=== PATIENT | male | born 1960 | race Two or more races ===

== ENCOUNTER 2022-12-31 08:41 | Outpatient (REF) | payer OTHER, SELFPAY ==
[2023-01-01 04:34] LABS: HBS Num1 108.86 mIU/mL (0-7.99); HBc Num1 0.08 S/CO (0.00-0.79); HBsAGNum1 0.38 S/CO (0.00-0.99); HIV AB/AG Nonreactive (Nonreactive); HIV Num 1 0.31 S/CO (0.00-0.99); Hepatitis B Core Antibody Nonreactive (Nonreactive); Hepatitis B Surface Antigen Negative (Negative); ~Hepatitis B Surface Antibody REACTIVE (Nonreactive)
[2023-01-01 14:43] LABS: HCV Log PCR <1.18 NOT DETECTED Log IU/mL (NOT DETECTED); HepC Viral Load <15 NOT DETECTED IU/mL (NOT DETECTED)
[2023-01-02 09:35] LABS: RPR Rapid Plasma Reagin NON-REACTIVE (NON-REACTIVE)
== END 2022-12-31 08:42 | disposition home or self-care (01) ==
LOC: HO.CHCLDS 08:41
PROVIDERS: Visit Provider Registered Nurse
DX: Z00.00 Encounter for general adult medical examination without abnormal findings (principal); R73.03 Prediabetes; K70.0 Alcoholic fatty liver; E78.2 Mixed hyperlipidemia
CPT/HCPCS: 36415; 80053; 80061; 83036; 84443; 85025; 86592; 86704; 86706; 87340; 87389; 87522

== ENCOUNTER 2025-03-21 08:48 | Outpatient (REF) | payer SELFPAY ==
--- OUTSIDE RECORDS SUMMARY | 2025-03-21 10:43 | XMS_ITS | Encounter Summary ---
Author Organization [employer] Address [address] [facility] [address] [place] [address] Care Team Providers Care Insurance Underwriter Name Role Phone Ana María Chambers [place] Primary Care Provider [phone] Encounter Details Date Type Department Care Team (Late st Contact Info) Description 08/10/2024 Orders Only [facility] [address] [place], [place] [id number] Provider, MD Donte Social History Tobacco Use Types Packs/Day Years Used Date Smoking Tobacco: Every Day Cigarettes Passive Smoke Exposure: Current Smokeless Tobacco: Former Depression Answer Date Recorded Patient Health Questionnaire-9 Score 8 08/10/2023 Patient Health Questionnaire-9 Score 8 08/10/2023 Last PHQ-9: Questionnaire Data Not on file 0 08/10/2023 Housing Stability Answer Date Recorded What is your housing situation today? I have rishabh mccann 08/03/[address] you li ve. Do you have problems with any of the following? None of the above 08/03/2023 Food Insecurity Answer Date Recorded Within the past 12 months, y ou worried that your food would run out before you got money to buy more: Never True 01/06/2023 Within the past 12 months,th e food you bought just didn't last and you didn't have enough money to get more: Never True Transportation Answer Date Recorded In the past 12 months, has l ack of transportation kept you from medical appts, meetings, work or from getting things needed for daily living? No 01/06/2023 Utilities Answer Date Recorded In the past 12 months, has t he electric, gas, oil or water company threatened to shut off services in your home? No 01/06/2023 Depression Answer Date Recorded Patient Health Questionnaire-2 Score 2 08/10/2023 Sex and Gender Information Value Date Recorded Sex Assigned at Male 05/05/2022 4:26 PM EST Legal Sex Male 4:25 PM EST Gender Identity Male 05/05/2022 4:26 PM EST Sexual Orientation Straight 12/26/2022 2: 53 PM EDT documented as of this encounter Plan of Treatment Upcoming Encounters Date Type Department Care Team (Late st Contact Info) Description 04/03/2025 9:00 AM EST Office Visit [facility] [address] [place] [address] Ana María Chambers FNP [address] [place] [address] documented as of this encounter Procedures Procedure Name Priority Date/Time Associated Diagnosis Comments HM LUNG CANCER SCREENING Routine 08/08/2024 2:[address] LUNG SCREENING Routine 08/08/2024 8:44 AM EDT documented in this encounter Results * Hm Lung Cancer Screning (08/08/2024 2:18 PM EDT) Anatomical Region Laterality Modality Other us Historical Provider HEALTH MAINTENANCE Final Result * CT Lung Screening Low dose (08/08/2024 8:44 AM EDT) Anatomical Region Laterality Modality Lung Computed Tomogra phy us Historical Provider IMG CT PROCEDURES Final R esult documented in this encounter Visit Diagnoses Not on filedocumented in this encounter Additional Health Concerns Assessment Noted Time PHQ-9 Depression Total Score: 8 08/10/19 24 9:01 AM EDT documented as of this encounter Care Teams Insurance Underwriter Relationship Specialty Start Date End Date Ana María Chambers FNP [address] [place] [address] PCP - General Family Medicine 05/27/22 documented as of this encounter
--- OUTSIDE RECORDS SUMMARY | 2025-03-21 10:43 | XMS_ITS | Encounter Summary ---
Author Organization [facility] Address [address] [place] [address] [place] [address] Phone Care Team Providers Care Chrome Worker Name Role Phone Darwin Gallagher MD Primary Care Provider [phone] Darwin Gallagher MD Primary Care Provider [phone] Duyen Ramirez MD Primary Care Provid er Pcp, Unknown Primary Care Provider Unavailabl e Duyen Ramirez MD Unavailable + [phone] Darwin Gallagher MD Unavailable Duyen Ramirez MD Primary Care Provid er Encounter Details Date Type Department Care Team (Latest Contact Info) Description 08/20/2018 Transcribe Orders Virtual Department [address] [place] [address] Darwin Gallagher MD [address] [facility] [address] [place] [address] [email or web address] Liver mass (Primary Dx) Social History Tobacco Use Types Packs/Day Years Used Date Smoking Tobacco: Never Assessed Sex and Gender Information Value Date Recorded Sex Assigned at Male 09/04/2018 12:34 PM EDT Legal Sex Male 12:20 PM EDT Gender Identity Male 09/04/2018 12:34 PM EDT Sexual Orientation Straight 09/04/2018 12 :34 PM EDT documented as of this encounter Plan of Treatment Not on file documented as of this encounter Visit Diagnoses Diagnosis Liver mass- Primary Unspecified disorder of liver documented in this encounter Care Teams Chrome Worker Relationship Specialty Start Date End Date Darwin Gallagher MD [address] [place] [address] [email or web address] PCP - General Family Medicine 09/15/17 09/03/18 Darwin Gallagher MD [address] [place] [phone] [email or web address] PCP - General Family Medicine 09/04/18 10/30/21 Duyen Ramirez MD [address] [address] [email or web address] PCP - General Family Medicine 10/31/21 Pcp, Unknown PCP - General 12/06/21 12/17/21 Duyen Ramirez MD [address] [address] [email or web address] PCP - General Family Medicine 12/18/21 1 03/27/23 Duyen Ramirez MD [address] [address] [email or web address] Medicine 12/06/21 1 03/27/23 Darwin Gallagher MD [address] [place] [address] [email or web address] 09/04/18 documented as of this encounter Additional Source Comments The information contained in this document represents components of the legal health record. It is not the complete legal health record.[facility]
--- OUTSIDE RECORDS SUMMARY | 2025-03-21 10:43 | XMS_ITS | Encounter Summary ---
Author Organization [facility] Address [address] [place] [address] Phone Care Team Providers Care Punch Box Tender Name Role Phone Darwin Gallagher MD Primary Care Provider [phone] Duyen Ramirez MD Primary Care Provid er Pcp, Unknown Primary Care Provider Unavailabl e Duyen Ramirez MD Unavailable + [phone] Darwin Gallagher MD Unavailable Duyen Ramirez MD Primary Care Provid er Encounter Details Date Type Department Care Team (Late st Contact Info) Description 09/04/2018 Procedure Pass [facility], [address] [address] Social History Tobacco Use Types Packs/Day Years Used Date Smoking Tobacco: Every Day Smokeless Tobacco: Never Alcohol Use Standard Drinks/Week Comments Yes 0 (1 standard drink = 0.6 oz pur e alcohol) Sex and Gender Information Value Date Recorded Sex Assigned at Male 09/04/2018 12:34 PM EDT Legal Sex Male 12:20 PM EDT Gender Identity Male 09/04/2018 12:34 PM EDT Sexual Orientation Straight 09/04/2018 12 :34 PM EDT documented as of this encounter Plan of Treatment Not on file documented as of this encounter Visit Diagnoses Not on filedocumented in this encounter Care Teams Punch Box Tender Relationship Specialty Start Date End Date Darwin Gallagher MD [address] [facility] [address] [place] [address] [email or web address] PCP - General Family Medicine 09/04/18 10/30/21 Duyen Ramirez MD [address] [address] [email or web address] PCP - General Family Medicine 10/31/21 Pcp, Unknown PCP - General 12/06/21 12/17/21 Duyen Ramirez MD [address] [address] [email or web address] PCP - General Family Medicine 12/18/21 1 03/27/23 Duyen Ramirez MD [address] [address] [email or web address] 12/06/21 1 03/27/23 Darwin Gallagher MD [address] [facility] [address] [place] [address] [email or web address] 09/04/18 documented as of this encounter Additional Source Comments The information contained in this document represents components of the legal health record. It is not the complete legal health record.[facility]
--- OUTSIDE RECORDS SUMMARY | 2025-03-21 10:43 | XMS_ITS | Encounter Summary ---
Author Organization [facility] Address [address] [place] [address] [place] [address] Phone Care Team Providers Care Seed Laboratory Assistant Name Role Phone Darwin Gallagher MD Primary Care Provider [phone] Darwin Gallagher MD Primary Care Provider [phone] Duyen Ramirez MD Primary Care Provid er Pcp, Unknown Primary Care Provider Unavailabl e Duyen Ramirez MD Unavailable [phone] Darwin Gallagher MD Unavailable Duyen Ramirez MD Primary Care Provid er Reason for Referral * MRI/CAT Scan - Closed Specialty Diagnoses / Procedures Referred By Contac t Referred To Contact Radiology Diagnoses Liver mass Hepatomegalia Procedures MRI Abdomen MRI Abdomen Darwin Gallagher MD Phone: tel: fax: [email or web address] Referral ID Status Reason Start Date Expiration Date Visits Re quested Visits Authorized [id number] Closed 08/20/2018 11/18/2018 1 1 Encounter Details Date Type Department Care Team ([facility] st Contact Info) Description 08/20/2018 Ancillary Orders Virtual Department [address] [place] [address] Darwin Gallagher MD [address] [place] [address] [address] [place] [address] [email or web address] Liver mass; Hepatomegalia Social History Tobacco Use Types Packs/Day Years [...] on file documented as of this encounter Results * MRI ABDOMEN WITH AND WITHOUT CONTRAST (09/17/2018 8:38 AM EDT) Anatomical Region Laterality Modality Abdomen Magnetic Resonan ce 09/17/2018 11:1 9 AM EDT Impressions 09/17/2018 11:32 AM EDT Stable size and appearance of known 4 cm enhancing mass in the right hepatic lobe with imaging characteristics that suggests focal nodular hyperplasia as previously mentioned. By report, this has been initially diagnosed on ultrasound; consider ultrasound for additional follow-ups. POS [id number] Narrative 09/17/2018 11:32 AM EDT EXAM: MRI ABDOMEN WITHOUT AND WITH INTRAVENOUS CONTRAST COMPARISON: MRI on October 06, 2017 describes 4 cm mass, for which ultrasound follow-up was recommended. CT on September 21, 2017. TECHNIQUE: Exam performed on a 1.5 Letty high-field MRI scanner. Axial T1 in and out of phase, T2, extended TE T2, and T1 with fat suppression, coronal T2, followed by post-gadolinium multi-phase axial T1 series with fat suppression sequences were obtained through the liver. Postcontrast images were obtained after intravenous administration of 14.5 cc of gadolinium contrast Dotarem. FINDINGS: LIVER: No hepatic signal abnormality. Redemonstration of known 4 cm enhancing mass in the right hepatic lobe with delayed enhancement of the central scar ; the size and appearance is unchanged from prior MR study. No new hepatic lesions identified. BILIARY: No ductal dilatation or filling defect. Gallbladder is unremarkable. PANCREAS: No mass or ductal dilatation. SPLEEN: No splenomegaly. ADRENALS: No nodules. KIDNEYS: No hydronephrosis or mass in the imaged portion of the kidneys. PERITONEUM / RETROPERITONEUM: No upper abdominal free fluid. LYMPH NODES: No upper abdominal lymphadenopathy. VESSELS: Unremarkable. BONES AND SOFT TISSUES: Unremarkable. Procedure Note Luis Fernando Arellano MD - 09/17/2018 EXAM: MRI ABDOMEN WITHOUT AND WITH INTRAVENOUS CONTRAST COMPARISON: MRI on October 06, 2017 describes 4 cm mass, for whichultrasound follow-up was recommended. CT on September 21, 2017. TECHNIQUE: Exam performed on a 1.5 Letty high-field MRI scanner. Axial T1in and out of phase, T2, extended TE T2, and T1 with fat suppression,coronal T2, followed by post-gadolinium multi-phase axial T1 series withfat suppression sequences were obtained through the liver. Postcontrastimages were obtained after intravenous administration of 14.5 cc ofgadolinium contrast Dotarem. FINDINGS: LIVER: No hepatic signal abnormality. Redemonstration of known 4 cmenhancing mass in the right hepatic lobe with delayed enhancement of thecentral scar ; the size and appearance is unchanged from prior MR study.No new hepatic lesions identified. BILIARY: No ductal dilatation or filling defect. Gallbladder isunremarkable. PANCREAS: No mass or ductal dilatation. SPLEEN: No splenomegaly. ADRENALS: No nodules. KIDNEYS: No hydronephrosis or mass in the imaged portion of the kidneys. PERITONEUM / RETROPERITONEUM: No upper abdominal free fluid. LYMPH NODES: No upper abdominal lymphadenopathy. VESSELS: Unremarkable. BONES AND SOFT TISSUES: Unremarkable. IMPRESSION: Stable size and appearance of known 4 cm enhancing mass in the righthepatic lobe with imaging characteristics that suggests focal nodularhyperplasia as previously mentioned. By report, this has been initiallydiagnosed on ultrasound; consider ultrasound for additional follow-ups. POS [id number] Darwin Gallagher MD [facility] MR ABDOMEN Final Result documented in this encounter Visit Diagnoses Diagnosis Liver mass Unspecified disorder of liver Hepatomegalia Hepatomegaly Liver mass Unspecified disorder of liver Hepatomegalia Hepatomegaly documented in this encounter Care Teams Seed Laboratory Assistant Relationship Specialty Start Date End Date Darwin Gallagher MD [address] [place] [address] [email or web address] PCP - General Family Medicine 09/15/17 09/03/18 Darwin Gallagher MD [address] [facility] [address] [place] [phone] [email or web address] PCP - General Family Medicine 09/04/18 10/30/21 Duyen Ramirez MD [address] [address] [email or web address] PCP - General Family Medicine 10/31/21 Pcp, Unknown PCP - General 12/06/21 12/17/21 Duyen Ramirez MD [address] [address] [email or web address] PCP - General Family Medicine 12/18/21 1 03/27/23 Duyen Ramirez MD [address] [address] [email or web address] Family Medicine 12/06/21 1 03/27/23 Darwin Gallagher MD [address] [facility] [address] [place] [address] [email or web address] 09/04/18 documented as of this encounter Additional Source Comments The information contained in this document represents components of the legal health record. It is not the complete legal health record.[facility]
--- OUTSIDE RECORDS SUMMARY | 2025-03-21 10:43 | XMS_ITS | Encounter Summary ---
Author Organization [facility] Address [address] [place] [address] Phone Care Team Providers Care Apple Checker Name Role Phone Darwin Gallagher MD Primary Care Provider [phone] Duyen Ramirez MD Primary Care Provid er Pcp, Unknown Primary Care Provider Unavailabl e Duyen Ramirez MD Unavailable + [phone] Darwin Gallagher MD Unavailable Duyen Ramirez MD Primary Care Provid er Encounter Details Date Type Department Care Team (Late st Contact Info) Description 09/04/2018 Procedure Pass [facility], [address] [address] Social History Tobacco Use Types Packs/Day Years [...] on filedocumented in this encounter Care Teams Apple Checker Relationship Specialty Start Date End Date Darwin Gallagher MD 230 [facility] [address] [place] [address] [email or web address] PCP - General Family Medicine 09/04/18 10/30/21 Duyen Ramirez MD [address] [address] [email or web address] PCP - General Family Medicine 10/31/21 Pcp, Unknown PCP - General 12/06/21 12/17/21 Duyen Ramirez MD [address] [address] [email or web address] PCP - General Family Medicine 12/18/21 1 03/27/23 Duyen Ramirez MD [address] [address] [email or web address] 12/06/21 1 03/27/23 Darwin Gallagher MD [address] [facility] [address] [place] [address] [email or web address] 09/04/18 documented as of this encounter Additional Source Comments The information contained in this document represents components of the legal health record. It is not the complete legal health record.[facility]
--- OUTSIDE RECORDS SUMMARY | 2025-03-21 10:43 | XMS_ITS | Encounter Summary ---
Author Organization [facility] Address [address] [place] [address] [place] [address] Phone Care Team Providers Care Reject Opener And Filler Name Role Phone Darwin Gallagher MD Primary Care Provider [phone] Darwin Gallagher MD Primary Care Provider [phone] Duyen Ramirez MD Primary Care Provid er Pcp, Unknown Primary Care Provider Unavailabl e Duyen Ramirez MD Unavailable + [phone] Darwin Glalagher MD Unavailable Darwin Gallagher MD Unavailable Duyen Ramirez MD Primary Care Provid er Encounter Details Date Type Department Care Team (Late st Contact Info) Description 09/28/2017 Ancillary Orders Virtual Department [address] [place] [address] Darwin Gallagher MD 230 [facility] [address] [place] [address] [email or web address] Liver mass; Hepatomegaly, not elsewhere classified Social History Tobacco Use Types Packs/Day Years [...] of this encounter Results * MRI ABDOMEN (LIVER) WITH AND WITHOUT CONTRAST (10/06/2017 9:19 AM EDT) Anatomical Region Laterality Modality Abdomen Magnetic Resonan ce 10/06/2017 10:3 8 AM EDT Impressions 10/06/2017 11:20 AM EDT No additional lesions of the liver detected. There is relatively little mass- effect for a 4 cm lesion. Suggestion of central scarlike process with fill-in is somewhat suggestive of FNH which would seem the most likely differential consideration. Fibrolamellar carcinoma is unlikely in a patient of this age and less likely without mass effect. Other primary lesions are also less likely given the relatively little mass-effect and presumably incidental nature of this lesion but should be correlated with any history of malignancy, abnormal liver function tests or other findings. Presuming this was initially seen on ultrasound, follow-up ultrasound in several months is recommended to insure this is not growing in an unexpected fashion. If definitive assessment is desired in the short run, biopsy under image guidance could be obtained. POS [id number] Narrative 10/06/2017 11:20 AM EDT HISTORY: Liver mass COMPARISON: CT September 21 TECHNIQUE: Exam performed on a 1.5 Letty high-field MRI scanner. Axial T1 in and out of phase, T2, extended TE T2, and T1 with fat suppression, coronal T2, followed by post-gadolinium multi-phase axial T1 series with fat suppression sequences were obtained through the liver. FINDINGS: Lung bases: No abnormality detected. Liver: Corresponding to the known mass in the dome of the right hepatic lobe anterior segment is a 4.2 cm mass which is faintly T1 hypointense and moderately T2 hyperintense. It has a central almost fluid intensity area which appears to fill in on delayed imaging. There does not appear to be robust initial enhancement with some mild reticular enhancement at the lesion outside the central area. Essentially the entire lesion appears to enhance. Borders are slightly lobulated. Lesion is round. There is very little mass-effect given the size of the lesion. Differential diagnosis remains largely the same with FNH favored. There are no liver function tests available for correlation and there is no findings of history of malignancy and there are no changes of cirrhosis here. This makes a primary or secondary neoplasm much less likely. No other similar lesions seen elsewhere within the liver. Spleen: No finding of concern. Gallbladder and biliary tree: No findings of concern. Pancreas: No findings of concern. Adrenals: No adrenal masses. Kidneys: No solid masses. No hydronephrosis. Nodes: No ariela lymphadenopathy is detected. Bowel: Very limited assessment by this technique. No obstruction. Vascular: No abdominal aortic aneurysm. Preserved portal venous and hepatic venous enhancement. Soft tissue: No ascites. No fluid collections or prominent inflammatory changes appreciated. Musculoskeletal: Limited assessment. No findings of clear concern. Procedure Note Myron Best MD - 10/06/2017 HISTORY: Liver mass COMPARISON: CT September 21 TECHNIQUE: Exam performed on a 1.5 Letty high-field MRI scanner. Axial T1in and out of phase, T2, extended TE T2, and T1 with fat suppression,coronal T2, followed by post-gadolinium multi-phase axial T1 series withfat suppression sequences were obtained through the liver. FINDINGS: Lung bases: No abnormality detected. Liver: Corresponding to the known mass in the dome of the right hepaticlobe anterior segment is a 4.2 cm mass which is faintly T1 hypointense andmoderately T2 hyperintense. It has a central almost fluid intensity areawhich appears to fill in on delayed imaging. There does not appear to berobust initial enhancement with some mild reticular enhancement at thelesion outside the central area. Essentially the entire lesion appears toenhance. Borders are slightly lobulated. Lesion is round. There is verylittle mass-effect given the size of the lesion. Differential diagnosisremains largely the same with FNH favored. There are no liver functiontests available for correlation and there is no findings of history ofmalignancy and there are no changes of cirrhosis here. This makes aprimary or secondary neoplasm much less likely. No other similar lesionsseen elsewhere within the liver. Spleen: No finding of concern. Gallbladder and biliary tree: No findings of concern. Pancreas: No findings of concern. Adrenals: No adrenal masses. Kidneys: No solid masses. No hydronephrosis. Nodes: No ariela lymphadenopathy is detected. Bowel: Very limited assessment by this technique. No obstruction. Vascular: No abdominal aortic aneurysm. Preserved portal venous andhepatic venous enhancement. Soft tissue: No ascites. No fluid collections or prominent inflammatorychanges appreciated. Musculoskeletal: Limited assessment. No findings of clear concern. IMPRESSION: No additional lesions of the liver detected. There is relatively littlemass- effect for a 4 cm lesion. Suggestion of central scarlike process withfill-in is somewhat suggestive of FNH which would seem the most likelydifferential consideration. Fibrolamellar carcinoma is unlikely in apatient of this age and less likely without mass effect. Other primarylesions are also less likely given the relatively little mass-effect andpresumably incidental nature of this lesion but should be correlated withany history of malignancy, abnormal liver function tests or otherfindings. Presuming this was initially seen on ultrasound, follow-upultrasound in several months is recommended to insure this is not growingin an unexpected fashion. If definitive assessment is desired in the shortrun, biopsy under image guidance could be obtained. POS [id number] Darwin Gallagher MD IMG MR ABDOMEN Final Result documented in this encounter Visit Diagnoses Diagnosis Liver mass Unspecified disorder of liver Hepatomegaly, not elsewhere classified Liver mass Unspecified disorder of liver Hepatomegaly, not elsewhere classified documented in this encounter Care Teams Reject Opener And Filler Relationship Specialty Start Date End Date Darwin Gallagher MD 230 [facility] [address] [place] [address] [email or web address] PCP - General Family Medicine 09/15/17 09/03/18 Darwin Gallagher MD 230 [facility] [address] [place] [address] [email or web address] PCP - General Family Medicine 09/04/18 10/30/21 Duyen Ramirez MD [address] [place] [address] [email or web address] PCP - General Family Medicine 10/31/21 12/05/21 Pcp, Unknown PCP - General 12/06/21 12/17/21 Duyen Ramirez MD [facility] [address] [place] [address] [email or web address] PCP - General Family Medicine 12/18/21 01/26/24 Duyen Ramirez MD [address] [facility] [address] [place] [address] [email or web address] Family Medicine 12/06/21 01/26/24 Darwin Gallagher MD [address] [place] [phone] [email or web address] 09/04/18 Darwin Gallagher MD [address] [place] [phone] [email or web address] Insurance Assigned Provider 11/21/17 documented as of this encounter Additional Source Comments The information contained in this document represents components of the legal health record. It is not the complete legal health record.[facility]
--- OUTSIDE RECORDS SUMMARY | 2025-03-21 10:43 | XMS_ITS | Encounter Summary ---
Author Organization [facility] Address [address] [place] [address] Phone Care Team Providers Care Telemetry Registered Nurse Name Role Phone Darwin Gallagher MD Primary Care Provider [phone] Darwin Gallagher MD Primary Care Provider [phone] Duyen Ramirez MD Primary Care Provid er Pcp, Unknown Primary Care Provider Unavailabl e Duyen Ramirez MD Unavailable + [phone] Darwin Gallagher MD Unavailable Darwin Gallagher MD Unavailable Duyen Ramirez MD Primary Care Provid er Encounter Details Date Type Department Care Team (Late st Contact Info) Description 09/15/2017 Ancillary Orders Virtual Department [address] [place] [address] Darwin Gallagher MD 230 [facility] [address] [place] [address] [email or web address] Hepatomegaly Social History Tobacco Use Types Packs/Day Years [...] documented as of this encounter Results * CT ABDOMEN WITH AND WITHOUT CONTRAST (09/21/2017 3:28 PM EDT) Anatomical Region Laterality Modality Abdomen, Abdominal Vasculature C omputed Tomography 09/21/2017 4:05 PM EDT Impressions 09/21/2017 4:35 PM EDT 4 cm mass in the superior right lobe of liver presumably representing same mass reported on previous outside exam. Differential diagnosis includes atypical hemangioma and FNH. Malignancy unlikely. MRI of the liver with and without contrast should be considered for further characterization. TOTAL CTDIvol: 16.50 mGy POS - [id number] Narrative 09/21/2017 4:35 PM EDT HISTORY: Pain, possible 4 cm mass on ultrasound in right lobe of liver. COMPARISON: None. TECHNIQUE: After the administration of oral and intravenous contrast, dynamic scanning is obtained from above dome of the liver to the iliac crests according to liver hemangioma protocol. Sagittal and coronal reformats generated. Automated exposure control utilized. A non-enhanced scan of the liver is not performed. FINDINGS: Lower hemithoraces: Small calcification of the pleura posterior inferiorly on the left. Liver: There is evidence of a mass within the superior right lobe of the liver. This is minimally hyperdense to adjacent liver parenchyma on the 30 second and 90 second delayed scans with two small hypodense central components. It measures approximately 3.7 cm x 2.9 cm and has a similar appearance on the 30 second delay and 90 second delay. The mass becomes almost entirely isodense to normal liver parenchyma except for a 10 mm central hypodense component. Liver margins are smooth. Liver otherwise appears normal. Biliary: No evidence of biliary ductal dilatation. Spleen: Spleen appears normal. Pancreas: Pancreas appears normal. Adrenals: Adrenals appear normal. : Kidneys appear normal. Ureters normal in caliber. Lymph nodes/lymphatics: No evidence of measurable retroperitoneal lymphadenopathy. GI: No marked bowel distention or evidence of bowel wall thickening. No evidence of free air. Cardiovascular: Mild calcification of the abdominal aorta which is normal in caliber. Portal vein is patent. Musculoskeletal: No suspicious lytic or blastic lesion within the bones.. Procedure Note Carlos Montoya MD - 09/21/2017 HISTORY: Pain, possible 4 cm mass on ultrasound in right lobe of liver. COMPARISON: None. TECHNIQUE: After the administration of oral and intravenous contrast,dynamic scanning is obtained from above dome of the liver to the iliaccrests according to liver hemangioma protocol. Sagittal and coronalreformats generated. Automated exposure control utilized. A non-enhancedscan of the liver is not performed. FINDINGS: Lower hemithoraces: Small calcification of the pleura posterior inferiorlyon the left. Liver: There is evidence of a mass within the superior right lobe of theliver. This is minimally hyperdense to adjacent liver parenchyma on the30 second and 90 second delayed scans with two small hypodense centralcomponents. It measures approximately 3.7 cm x 2.9 cm and has a similarappearance on the 30 second delay and 90 second delay. The mass becomesalmost entirely isodense to normal liver parenchyma except for a 10 mmcentral hypodense component. Liver margins are smooth. Liver otherwiseappears normal. Biliary: No evidence of biliary ductal dilatation. Spleen: Spleen appears normal. Pancreas: Pancreas appears normal. Adrenals: Adrenals appear normal. : Kidneys appear normal. Ureters normal in caliber. Lymph nodes/lymphatics: No evidence of measurable retroperitoneallymphadenopathy. GI: No marked bowel distention or evidence of bowel wall thickening. Noevidence of free air. Cardiovascular: Mild calcification of the abdominal aorta which is normalin caliber. Portal vein is patent. Musculoskeletal: No suspicious lytic or blastic lesion within thebones.. IMPRESSION: 4 cm mass in the superior right lobe of liver presumably representing samemass reported on previous outside exam. Differential diagnosis includesatypical hemangioma and FNH. Malignancy unlikely. MRI of the liver withand without contrast should be considered for further characterization. TOTAL CTDIvol: 16.50 mGy POS - [id number] Darwin Gallagher MD IMG CT XSPECIALTY ORDERABLES Fin al Result documented in this encounter Visit Diagnoses Diagnosis Hepatomegaly Hepatomegaly documented in this encounter Care Teams Telemetry Registered Nurse Relationship Specialty Start Date End Date Darwin Gallagher MD [address] [place] [address] [email or web address] PCP - General Family Medicine 09/15/17 09/03/18 Darwin Gallagher MD [address] [place] [address] [email or web address] PCP - General Family Medicine 09/04/18 10/30/21 Duyen Ramirez MD [address] [address] [email or web address] PCP - General Family Medicine 10/31/21 12/05/21 Pcp, Unknown PCP - General 12/06/21 12/17/21 Duyen Ramirez MD [address] [address] [email or web address] PCP - General Family Medicine 12/18/21 01/26/24 Duyen Ramirez MD [address] [address] [email or web address] Family Medicine 12/06/21 01/26/24 Darwin Gallagher MD [address] [place] [address] [email or web address] Medicine 09/04/18 Darwin Gallagher MD [address] [place] [address] [email or web address] Insurance Assigned Provider 11/21/17 documented as of this encounter Additional Source Comments The information contained in this document represents components of the legal health record. It is not the complete legal health record.[facility]
--- OUTSIDE RECORDS SUMMARY | 2025-03-21 10:43 | XMS_ITS | Encounter Summary ---
Author Organization [facility] Address [address] [place] [address] [place] [address] Phone Care Team Providers Care Motion Picture Printer Name Role Phone Darwin Gallagher MD Primary Care Provider [phone] Darwin Gallagher MD Primary Care Provider [phone] Duyen Ramirez MD Primary Care Provid er Pcp, Unknown Primary Care Provider Unavailabl e Duyen Ramirez MD Unavailable + [phone] Darwin Gallagehr MD Unavailable Duyen Ramirez MD Primary Care Provid er Encounter Details Date Type Department Care Team (Late st Contact Info) Description 08/20/2018 Procedure Pass [facility], [address] [address] Social History Tobacco Use Types Packs/Day Years [...] on filedocumented in this encounter Care Teams Motion Picture Printer Relationship Specialty Start Date End Date Darwin Gallagher MD 230 [facility] [address] [place] [address] [email or web address] PCP - General Family Medicine 09/15/17 09/03/18 Darwin Gallagher MD 230 [facility] [address] [place] [address] [email or web address] PCP - General Family Medicine 09/04/18 10/30/21 Duyen Ramirez MD [address] [address] [email or web address] PCP - General Family Medicine 10/31/21 Pcp, Unknown PCP - General 12/06/21 12/17/21 Duyen Ramirez MD [address] [address] [email or web address] PCP - General Family Medicine 12/18/21 1 03/27/23 Duyen Ramirez MD [address] [address] [email or web address] Medicine 12/06/21 1 03/27/23 Darwin Gallagher MD 230 [facility] [address] [place] [address] [email or web address] Family Medicine 09/04/18 documented as of this encounter Additional Source Comments The information contained in this document represents components of the legal health record. It is not the complete legal health record.[facility]
--- OUTSIDE RECORDS SUMMARY | 2025-03-21 10:43 | XMS_ITS | Encounter Summary ---
Author Organization [facility] Address [address] [place] [address] Phone Care Team Providers Care Drain Layer Name Role Phone Darwin Gallagher MD Primary Care Provider [phone] Darwin Gallagher MD Primary Care Provider [phone] Duyen Ramirez MD Primary Care Provid er Pcp, Unknown Primary Care Provider Unavailabl e Duyen Ramirez MD Unavailable + [phone] Darwin Gallagher MD Unavailable Darwin Gallagher MD Unavailable Duyen Ramirez MD Primary Care Provid er Encounter Details Date Type Department Care Team (Late st Contact Info) Description 09/28/2017 Procedure Pass [facility], [address] [address] Social History Tobacco Use Types Packs/Day Years [...] on filedocumented in this encounter Care Teams Drain Layer Relationship Specialty Start Date End Date Darwin Gallagher MD [address] [place] [address] Gene PCP - General Family Medicine 09/15/17 09/03/18 Darwin Gallagher MD [address] [place] [address] [place] PCP - General Family Medicine 09/04/18 10/30/21 Duyen Ramirez MD [address] [address] [email or web address] PCP - General Family Medicine 10/31/21 12/05/21 Pcp, Unknown PCP - General 12/06/21 12/17/21 Duyen Ramirez MD [address] [address] [email or web address] PCP - General Family Medicine 12/18/21 01/26/24 Duyen Ramirez MD [address] [address] [email or web address] Family Medicine 12/06/21 01/26/24 Darwin Gallagher MD [address] [place] [address] [facility] Family Medicine 09/04/18 Darwin Gallagher MD [address] [place] [address] Insurance Assigned Provider 11/21/17 documented as of this encounter Additional Source Comments The information contained in this document represents components of the legal health record. It is not the complete legal health record.[facility]
--- OUTSIDE RECORDS SUMMARY | 2025-03-21 10:43 | XMS_ITS | Encounter Summary ---
Author Organization [facility] Address [address] [place] [address] [place] [address] Phone Care Team Providers Care Guest Experience Specialist Name Role Phone Darwin Gallagher MD Primary Care Provider [phone] Darwin Gallagher MD Primary Care Provider [phone] Duyen Ramirez MD Primary Care Provid er Pcp, Unknown Primary Care Provider Unavailabl e Duyen Ramirez MD Unavailable + [phone] Darwin Gallagher MD Unavailable Darwin Gallagher MD Unavailable Duyen Ramirez MD Primary Care Provid er Encounter Details Date Type Department Care Team (Late st Contact Info) Description 09/15/2017 Procedure Pass [facility], Ct Scan - [address] [address] Social History Tobacco Use Types Packs/Day Years [...] on filedocumented in this encounter Care Teams Guest Experience Specialist Relationship Specialty Start Date End Date Darwin Gallagher MD [address] [place] [address] [email or web address] PCP - General Family Medicine 09/15/17 09/03/18 Darwin Gallagher MD [address] [place] [address] [email or web address] PCP - General Family Medicine 09/04/18 10/30/21 Duyen Ramirez MD [address] [address] [email or web address] PCP - General Family Medicine 10/31/21 12/05/21 Pcp, Unknown PCP - General 12/06/21 12/17/21 Duyen Ramirez MD [address] [address] [email or web address] PCP - General Family Medicine 12/18/21 01/26/24 Duyen Ramirez MD [address] [address] [email or web address] Family Medicine 12/06/21 01/26/24 Darwin Gallagher MD [address] [place] [address] [email or web address] Family Medicine 09/04/18 Darwin Gallagher MD [address] [place] [address] [email or web address] Insurance Assigned Provider 11/21/17 documented as of this encounter Additional Source Comments The information contained in this document represents components of the legal health record. It is not the complete legal health record.[facility]
--- OUTSIDE RECORDS SUMMARY | 2025-03-21 10:43 | XMS_ITS | Encounter Summary ---
Author Organization [facility] Address [address] [place] [address] Phone Care Team Providers Care Nuclear Physician Name Role Phone Darwin Gallagher MD Primary Care Provider [phone] Duyen Ramirez MD Primary Care Provid er Pcp, Unknown Primary Care Provider Unavailabl e Duyen Ramirez MD Unavailable + [phone] Darwin Gallagher MD Unavailable Duyen Ramirez MD Primary Care Provid er Encounter Details Date Type Department Care Team (Late st Contact Info) Description 09/04/2018 Procedure Pass [facility], [address] [address] Social History Tobacco Use Types Packs/Day Years [...] on filedocumented in this encounter Care Teams Nuclear Physician Relationship Specialty Start Date End Date Darwin Gallagher MD 230 [facility] [address] [place] [address] [email or web address] PCP - General Family Medicine 09/04/18 10/30/21 Duyen Ramirez MD [address] [address] [email or web address] PCP - General Family Medicine 10/31/21 Pcp, Unknown PCP - General 12/06/21 12/17/21 Duyen Ramirez MD [address] [address] [email or web address] PCP - General Family Medicine 12/18/21 1 03/27/23 Duyen Ramirez MD [address] [address] [email or web address] Family Medicine 12/06/21 1 03/27/23 Darwin Gallagher MD 230 [facility] [address] [place] [address] [email or web address] Family Medicine 09/04/18 documented as of this encounter Additional Source Comments The information contained in this document represents components of the legal health record. It is not the complete legal health record.[facility]
--- OUTSIDE RECORDS SUMMARY | 2025-03-21 10:43 | XMS_ITS | Encounter Summary ---
Author Organization [employer] Address [address] [facility] 7t [place] [address] Care Team Providers Care Building Mover Name Role Phone Ana María Chambers OPERATIONS PLANNER Primary Care Provider [phone] Encounter Details Date Type Department Care Team (Late st Contact Info) Description 08/26/2024 Orders Only [place] [facility] [address] [place], [place] [phone] Provider, MD Donte Social History Tobacco Use [...] Description 04/03/2025 9:00 AM EST Office Visit [facility] [address] [place] [address] Ana María Chambers FNP [address] [place] [address] documented as of this encounter Procedures Procedure Name Priority Date/Time Associated Diagnosis Comments US ABDOMEN LIMITED Routine 08/26/2024 9:21 AM EDT documented in this encounter Results * US Abdomen Limited (08/26/2024 9:21 AM EDT) Anatomical Region Laterality Modality Abdomen Ultrasound us Historical Provider MD HAMEED US PROCEDURES Final R esult documented in this encounter Visit Diagnoses Not on filedocumented in this encounter Additional Health Concerns Assessment Noted Time PHQ-9 Depression Total Score: 8 08/10/19 24 9:01 AM EDT documented as of this encounter Care Teams Building Mover Relationship Specialty Start Date End Date Ana María Chambers FNP [address] [place] [address] PCP - General Family Medicine 05/27/22 documented as of this encounter
--- OUTSIDE RECORDS SUMMARY | 2025-03-21 10:44 | XMS_ITS | Clinical Summary ---
Author Organization [employer] Address [address] [facility] 7[address] [place] [address] Care Team Providers Care Certified Hyperbaric Technician Name Role Phone Ana María Chambers TENNIS DIRECTOR Primary Care Provider [phone] Allergies Active Allergy Reactions Criticality Noted Date Comments Other Anaphylaxis High 10/06/2017 Stingray Penicillins Nausea And Vomiting,Swelling High 2017 Medications lidocaine (Lidoderm) 5 % patchIndications:L ow back pain at multiple sites Apply 1 patch topically in the morning. Remove & discard patch within 12 hours or as directed by MD. 30 patch 3 4 Active Blood Pressure kitIndications:Val vated blood pressure reading Use to check blood pressure as directed by provider, and if symptomatic. 1 kit 5 Active atorvastatin (Lipitor) 20 MG tabletIndications: Mixed hyperlipidemia Take 1 tablet (20 mg) by mouth at bedtime. (Cholesterol) 90 tablet 3 03/03/2025 10:33 AM EST 5 026 Active fluticasone (Flonase) 50 MCG/ACT nasal sprayIndications:A llergic rhinitis, unspecified seasonality, unspecified trigger Administer 1-2 sprays into each nostril Once per day. Shake gently. Before first use, prime pump. After use, clean tip and replace cap. 16 g 11 5 026 Active loratadine (Claritin) 10 MG tabletIndications: Allergic rhinitis, unspecified seasonality, unspecified trigger Take 1 tablet (10 mg) by mouth if needed at bedtime for allergies. 90 tablet 3 5 026 Active Advair HFA 230-21 MCG/ACT inhalerIndications :Other emphysema (HCC) Inhale 2 puffs 2 times daily. 12 g 2 5 Active albuterol 108 (90 Base) MCG/ACT inhalerIndications :Other emphysema (HCC) TAKE 2 PUFFS EVERY 4 HOURS NEEDED FOR COUGH/WHEEZING 18 g 11 5 Active Active Problems Problem Noted Date Diagnosed Date Healthcare maintenance 04/23/2023 Overview (01/01/2025): LDCT: Lung-RADS 2 in July 2024 ([facility]) Cologuard Neg Dec 2022 Dental: referral to [facility] Mar 2023 Assessment & Plan (12/24/2023 10:10 AM EDT): Labs: routine labs plan to complete in Mar-Apr 2024. Orders placed today. Other emphysema 12/28/2022 Overview (12/28/2022): Following with Dr. Zach Contreras (pt reports diagnosis of emphysema through their office, report pending) Continues with Advair 2 puffs BID Albuterol PRN Encouraged smoking cessation Mixed hyperlipidemia 12/06/2021 Overview (04/23/2023): -Continues atorvastatin 20mg nightly -continue lifestyle modifications -Lipids Dec 2022: LDL 105, TC 175, HDL 42, TG 144 Chronic alcohol use 11/24/2021 Fatty liver 11/08/2021 Overview (01/01/2025): Lab Results Component Value Date AST 20 12/31/2022 ALT 16 12/31/2022 TOTPROTEIN 7.4 12/31/2022 ALB 4.3 12/31/2022 ALP 63 12/31/2022 TOTALBILIRUB 0.4 12/31/2022 - Abd US 01/05/24 completed at [facility] c/w fatty liver (no masses) - Abdominal US w/ elastography completed 08/26/24 at [facility] demonstrated no suspicious liver lesions. Elastography 1.43 m/s, F1 --> normal to mild fibrosis -Encouraged lifestyle interventions including avoid/reduce alcohol use, diet rich in fiber, low in trans-fats, routine physical activity Gallbladder polyp 11/08/2021 Overview (01/01/2025): - Abd US Oct 2021 noted small gallbladder polyps. - Pt asymptomatic - Abd US Dec 2023: structure in the gallbladder 6x5x4 mm that appears consistent with a cholesterol polyp. Recommendations: repeat the US of the gall bladder in 6 months (June 2023), one year (Dec 2024), and 2 years (Dec 2025). If no growth by two years, then can stop monitoring. August 2024: abdominal US demonstrated possible small polyps, with largest measuring 7mm. Recommend repeat imaging 6 months (~Feb 2025) Assessment & Plan (01/01/2025 6:41 PM EDT): No abdominal symptoms. Repeat ultrasound ordered Assessment & Plan (08/08/2024 5:35 PM EDT): No abdominal symptoms. Repeat ultrasound ordered Assessment & Plan (08/11/2023 10:20 AM EDT): No abdominal symptoms. Pt believes that he may have had recent imaging, will confirm with . If not, will call office for order to be placed through PCP. Left carpal tunnel syndrome 10/31/2021 Prediabetes 10/31/2021 Overview (01/01/2025): Lab Results Component Value Date HGBA1C 5.5 12/31/2022 Assessment & Plan (01/01/2025 6:48 PM EDT): - Repeat A1c ordered Smoker 10/31/2021 Overview (01/01/2025): -Cigg/day: ~5-10 -Age started: 15 y/o -Pack year history: >35 Encouraged smoking cessation resources such as pharmacomtherapy, [facility] smoking cessation group, and [facility] pharmacy smoking cessation clinic -Pharmacotherapy: declines -LDCT: Lung-RADS 2 in July 2024 ([facility]) Resolved Problems Problem Noted Date Diagnosed Date Resolved Date Chronic cough 11/24/2021 12/28/2022 Chronic hand pain, left 10/31/202112/21 Encounters Date Type Department Care Team Description 12/30/2024 8:30 AM EDT Office Visit [facility] MED & PEDS [address] [place] [address] Ana María Chambers FNP Gallbladder polyp (Primary Dx); Prediabetes; Encounter for immunization; Healthcare maintenance; Other emphysema (HCC); Smoker; Routine health maintenance; Fatty liver 12/30/2024 Travel 12/29/2024 Telephone [facility] [address] [place] [address] Ana María Chambers FNP chart prep from Last 3 Months Immunizations Immunization Administration Dates Next Due Influenza injectable quadriv alent preservative free 12/26/2022,01/24/2022,05/02/2019,2017 Influenza, High Dose Seasona l, Preservative Free 12/30/2024 Pneumococcal Conjugate PCV 20 04/20/2023 Tdap 06/16/2016 Social History Tobacco Use Types Packs/Day Years Used Date Smoking Tobacco: Every Day Cigarettes Passive Smoke Exposure: Current Smokeless Tobacco: Former Tobacco Cessation:Ready to Q uit: Not Asked; Counseling Given: Not Answered Alcohol Answer Date Recorded How often do you have a drink containing alcohol ? 1 12/30/2024 How many drinks containing a lcohol do you have on a typical day when you are drinking? 0 12/30/2024 How often do you have six or more drinks on one occasion? 0 12/30/2024 Depression Answer Date Recorded Patient Health Questionnaire-9 Score 0 12/30/2024 Patient Health Questionnaire-9 Score 0 12/30/2024 Last PHQ-9: Questionnaire Data Not on file 1 Housing Stability Answer Date Recorded What is your housing situation today? I have rishabh mccann 12/30/[address] you li ve. Do you have problems with any of the following? None of the above 12/30/2024 Food Insecurity Answer Date Recorded Within the past 12 months, y ou worried that your food would run out before you got money to buy more: Never True 12/30/2024 Within the past 12 months,th e food you bought just didn't last and you didn't have enough money to get more: Never True 12/2024 Transportation Answer Date Recorded In the past 12 months, has l ack of transportation kept you from medical appts, meetings, work or from getting things needed for daily living? Yes, it has kept me from medical appointments or getting medications. 12/30/2024 Utilities Answer Date Recorded In the past 12 months, has t he electric, gas, oil or water company threatened to shut off services in your home? No 12/30/2024 Depression Answer Date Recorded Patient Health Questionnaire-2 Score 0 12/30/2024 Internet Access Answer Date Recorded Internet Access Q1 Yes 12/30/2024 Internet Access Q2 Not on file 12/30/2024 Sex and Gender Information Value Date Recorded Sex Assigned at Male 05/05/2022 4:26 PM EST Legal Sex Male 4:25 PM EST Gender Identity Male 05/05/2022 4:26 PM EST Sexual Orientation Straight 12/26/2022 2: 53 PM EDT Last Filed Vital Signs Vital Sign Reading Time Taken Comments Blood Pressure 128/68 12/30/2024 8:49 AM EDT Pulse 58 12/30/2024 8:49 AM EDT Temperature 37.1 C (98.7 F) 08/08/2024 4:13 PM EDT Respiratory Rate 20 12/30/2024 8:49 AM EDT Oxygen Saturation 99% 12/30/2024 8:49 AM EDT Inhaled Oxygen Concentration - - Weight 76.7 kg (169 lb) 12/30/2024 8:49 AM EDT Height 182 cm (5' 11.65 ) 12/30/2024 8:49 AM EDT Body Mass Index 23.14 12/30/2024 8:49 AM EDT Plan of Treatment Upcoming Encounters Date Type Department Care Team (Late st Contact Info) Description 04/03/2025 9:00 AM EST Office Visit [facility] P[facility] [address] [place] [address] Ana María Chambers FNP [address] [place] [address] Health Maintenance Due Date Last Done Comments CT Colonography 1959 Colonoscopy 1959 Dental Oral Exam 1959 Dental Prophylaxis 1959 Dental X-Ray: Bitewings 1959 Dental X-Ray: Full Mouth 1959 FIT 1959 Sigmoidoscopy 1959 Hepatitis A Vaccines (1 of 2 - Risk 2-dose series) 1978 RSV Patients and Patients Aged 60 years or older (1 - Risk 50-74 years 1-dose series) 2009 Zoster Vaccines (1 of 2) 2009 Diabetes: Hemoglobin A1C 01/01/2024 12/31/2022, 0811/2021 FOBT 01/05/2024 01/04/2023 COVID-19 Vaccine ( season) 2024 01/30/2023, 01/24/2022, 02/02/2021, Additional history exists Tobacco Screening 12/20/2024 12/21/2023 Lung Cancer Screening 08/08/2025 08/08/2024 , 08/08/2024, 07/13/2023, Additional history exists Alcohol/Substance Use Screening 12/30/2025 12/30/2024 Depression Screening 12/30/2025 12/30/2024, 12/31/19 25 SDOH Screening 12/30/2025 12/30/2024 Colorectal Cancer Screening 01/04/2026 FIT DNA/Cologuard 01/04/2026 01/04/2023 DTaP/Tdap/Td Vaccines (2 - Td or Tdap) 06/16/2026 06/16/2016 Lipid Panel 01/01/2028 12/31/2022 Hepatitis C Screening Completed 12/31/2022 Pneumococcal Vaccine: 50+ Years Completed 04/20/2023 Influenza Vaccine Completed 12/30/2024, , 01/24/2022, Additional history exists HIB Vaccines Aged Out No longer eligi ble based on patient's age to complete this topic HPV Vaccines Aged Out No longer eligi ble based on patient's age to complete this topic Hepatitis B Vaccines Discontinued IPV Vaccines Aged Out No longer eligi ble based on patient's age to complete this topic Meningococcal B Vaccine Aged Out No l onger eligible based on patient's age to complete this topic Meningococcal Vaccine Aged Out No ricci dasia eligible based on patient's age to complete this topic RSV under 20 months Aged Out No longe r eligible based on patient's age to complete this topic Rotavirus Vaccines Aged Out No longer eligible based on patient's age to complete this topic Procedures Procedure Name Priority Date/Time Associated Diagnosis Comments POCT GLUCOSE (CPT-75098) Routine 12/30/2024 9:01 AM EDT Prediabetes HM LUNG CANCER SCREENING Routine 08/08/2024 2:18 PM EDT LAB COLOGUARD COLON CANCER SCREEN Routine 01/04/2023 12:22 PM EDT Encounter for screening for malignant neoplasm of colon HEPATITIS C VIRAL RNA, QUANTITATIVE, REAL-TIME PCR Routine 12/31/2022 9:02 AM EDT Routine health maintenance HEMOGLOBIN A1C Routine 12/31/2022 9:02 AM EDT Routine health maintenance LIPID PANEL, STANDARD Routine 12/31/2022 9:02 AM EDT Routine health maintenance from Last 3 Months or Most Recently Relevant to Health Maintenance Results * POCT Glucose (12/30/2024 9:01 AM EDT) Glucose Blood, POC 93 60 - 200 mg/dL QC Media Lot # [id number] Lot# Expiration Date Comment:random Blood Capillary blood specimen / Unknown 12/30/2024 9:01 AM EDT Ana María Chambers TENNIS DIRECTOR POINT OF CARE TEST ENTER/EDIT ORDERABLES Final Result * Hm Lung Cancer Screning (08/08/2024 2:18 PM EDT) Anatomical Region Laterality Modality Other Historical Provider MD HEALTH MAINTENANCE Final Result * Cologuard?? colon cancer screening (01/04/2023 12:22 PM EDT) Cologuard Result Negative Negative 01/10/20 9:39 AM EDT [facility] (CLIA #:[id number]) Comment: NEGATIVE TEST RESULT. A negative Cologuard result indicates a low likelihood that a colorectal cancer (CRC) or advanced adenoma (adenomatous polyps with more advanced pre-malignant features) is present. The chance that a person with a negative Cologuard test has a colorectal cancer is less than 1 in 1500 (negative predictive value >99.9%) or has an advanced adenoma is less than 5.3% (negative predictive value 94.7%). These data are based on a prospective cross-sectional study of 10,000 individuals at average risk for colorectal cancer who were screened with both Cologuard and colonoscopy. (Fan Rick et al, N Engl J Med 2014;370(14):1216-1500) The normal value (reference range) for this assay is negative. COLOGUARD RE-SCREENING RECOMMENDATION: Periodic colorectal cancer screening is an important part of preventive healthcare for asymptomatic individuals at average risk for colorectal cancer. Following a negative Cologuard result, the [place] [employer] Society and U.S. Multi-Society Task Force screening guidelines recommend a Cologuard re-screening interval of 3 years. References: [place] [employer] Guideline for Colorectal Cancer Screening: https://www.cancer.org/cancer/bkpjk-gsrzlo-nmuoyf/wyyrryusf-tugspween-kqcrhen/ac s-rec ommendations.html.; Carlso DK, Tatyana WILSON, Henri CatherineK, Colorectal Cancer Screening: Recommendations for Physicians and Patients from the U.S. Multi-Society Task Force on Colorectal Cancer Screening , Am J Gastroenterology 2017; 112:6352-8633. TEST DESCRIPTION: Composite algorithmic analysis of stool DNA-biomarkers with hemoglobin immunoassay. Quantitative values of individual biomarkers are not reportable and are not associated with individual biomarker result reference ranges. Cologuard is intended for colorectal cancer screening of adults of either sex, 45 years or older, who are at average-risk for colorectal cancer (CRC). Cologuard has been approved for use by the U.S. FDA. The performance of Cologuard was established in a cross sectional study of average-risk adults aged 50-84. Cologuard performance in patients ages 45 to 49 years was estimated by sub-group analysis of near-age groups. Colonoscopies performed for a positive result may find as the most clinically significant lesion: colorectal cancer [4.0%], advanced adenoma (including sessile serrated polyps greater than or equal to 1cm diameter) [20%] or non- advanced adenoma [31%]; or no colorectal neoplasia [45%]. These estimates are derived from a prospective cross-sectional screening study of 10,000 individuals at average risk for colorectal cancer who were screened with both Cologuard and colonoscopy. (Fan Mendiola al, N Engl J Med 2014;370(14):0489-5724.) Cologuard may produce a false negative or false positive result (no colorectal cancer or precancerous polyp present at colonoscopy follow up). A negative Cologuard test result does not guarantee the absence of CRC or advanced adenoma (pre-cancer). The current Cologuard screening interval is every 3 years. ([place] [employer] and U.S. Multi-Society Task Force). Cologuard performance data in a 10,000 patient pivotal study using colonoscopy as the reference method can be accessed at the following location: www.ZUCHEM.Dyyno/results. Additional description of the Cologuard test process, warnings and precautions can be found at www.[employer]Atilektrd.com. Stool specimen (specimen) 01/04/2023 12:22 PM EDT 01/06/2023 2:21 PM EDT Ana María Chambers [facility] MOLECULAR DIAGNOSTICS ZULEMA READ Final Result [facility] (CLIA #:[id number]) [place] [address], * Hepatitis C Viral RNA, Quantitative, Real-Time PCR (12/31/2022 9:02 AM EDT) Hepatitis C Viral Load <15 NOT DETECTED NOT DETECTED IU/mL [facility] HCV Log PCR <1.18 NOT DETECTED NOT DETECTED Log IU/mL [facility] Comment:This test was perfor med using Real-Time Polymerase ChainReaction.Reportable Range: 15 IU/mL to 100,000,000 IU/mL(1.18 Log IU/mL to 8.00 Log IU/mL).The analytical performance characteristics of thisassay have been determined by [employer].The modifications have not been cleared or approved bythe FDA. This assay has been validated pursuant to theCLIA regulations and is used for clinical purposes.For more information on this test, go to:http://education.Worklight/faq/HTU28c6(This link is being provided for informational/educational purposes only.)THIS TEST WAS PERFORMED AT:[facility] [place] [phone] MASON MD Blood 12/31/2022 9:02 AM EDT 12/31/2022 2:14 PM EDT Ana María Chambers [facility] BLOOD ORDERABLES Final Res ult Performing Organization Address [facility] Co de Phone Number [facility] [address] [place] [phone] * Hemoglobin A1c (12/31/2022 9:02 AM EDT) Hemoglobin A1c 5.5 <6.0 % [facility] Comment:Hemoglobin A1C Refer ence Range Adults: 4.8 - 6.0 % Non diabetic: < 6.0 % Goal: < 7.0 %Additional Action Suggested: > 8.0 %Note: Hemoglobin A1c results are invalid for patients with abnormal amounts of HbF. Blood transfusions may impact the HbA1c concentration in the patient sample. Estimated Average Glucose 111 mg/dL [facility] Comment:eAG = Estimated ave rage glucose which is %A1C expressed asaverage glucose, using the formula of the H2A-XktkcjuDmdxvhd Glucose study (ADAG), Diabetes Care, Vol.31,#8,2007 Blood Venous blood specimen / Unknown 12/31/2022 9:02 AM EDT 12/31/2022 2:14 PM EDT Ana María Chambers TENNIS DIRECTOR LAB BLOOD ORDERABLES Final Res ult Performing Organization Address [facility]/ZIP Co de Phone Number [facility] [address] [place] [phone] * (ABNORMAL) Lipid Panel, Standard (12/31/2022 9:02 AM EDT) Triglycerides 144 <150 mg/dL [facility] Comment:Desirable Triglyceri de: less than 150 mg/dLBorderline High Triglyceride 150-199 mg/dLHigh Triglyceride: 200-499 mg/dLVery High Triglyceride: greater than or equal to 5OO mg/dL Cholesterol 175 <200 mg/dL [facility] Comment:Desirable Cholestero l: less than 200 mg/dLBorderline High Cholesterol: 200-239 mg/dLHigh Cholesterol: greater than 239 mg/dL LDL Cholesterol Calculated 105(H) <100 mg/dL [facility] Comment:Desirable LDL: less than 100 mg/dLNear Optimal/Above Optimal LDL: 110- 129 mg/dLBorderline High LDL: 130-159 mg/dLHigh LDL: 160-189 mg/dLVery High LDL: greater than or equal to 190 mg/dL HDL Cholesterol 42 >40 mg/dL [facility] Comment:Desirable HDL: great er than 40 mg/dL Note: This HDL assay may give artificially low results in patients with liver disease. Blood Venous blood specimen / Unknown 12/31/2022 9:02 AM EDT 12/31/2022 2:14 PM EDT us Ana María Chambers TENNIS DIRECTOR LAB BLOOD ORDERABLES Final Res ult [facility] [address] [place] [phone] from Last 3 Months or Most Recently Relevant to Health Maintenance Insurance [facility] MEDIC[facility] [employer]AGE Care Teams Certified Hyperbaric Technician Relationship Specialty Start Date End Date Ana María Chambers FNP [address] [place] [phone] PCP - General Family Medicine 05/27/22
--- OUTSIDE RECORDS SUMMARY | 2025-03-21 10:44 | XMS_ITS | Clinical Summary ---
Author Organization [facility] [address] [facility] Address [address] [place] [address] Phone Care Team Providers Care Medical Office Professional Instructor Name Role Phone Ana María Chambers RN Primary Care Provider Medical History Medical History Date Comments Hyperlipidemia DX:Hyperlipidemi a Tobacco use DX:Tobacco use Prediabetes DX:Prediabetes Family History Medical History Relation Name Comments Throat cancer Father Prostate cancer Paternal Grandfather Relation Name Status Comments Father Paternal Grandfather Alive Social History Tobacco Use Types Packs/Day Years Used Date Smoking Tobacco: Every Day Cigarettes 1 51 Started: 03/23/1974 Smokeless Tobacco: Never Alcohol Use Standard Drinks/Week Comments Yes 0 (1 standard drink = 0.6 oz pur e alcohol) Sex and Gender Information Value Date Recorded Sex Assigned at Male 07/14/2024 3:06 PM EDT Legal Sex Male 9:03 AM EST Gender Identity Male 07/14/2024 3:06 PM EDT Sexual Orientation Not on file Last Filed Vital Signs Vital Sign Reading Time Taken Comments Blood Pressure 110/57 06/23/2022 8:47 AM EDT Pulse 61 06/23/2022 8:47 AM EDT Temperature - - Respiratory Rate - - Oxygen Saturation - - Inhaled Oxygen Concentration - - Weight 76.8 kg (169 lb 6.4 oz) 06/23/2022 8:47 A M EDT Height 175.3 cm (5' 9 ) 06/23/2022 8:47 AM EDT Body Mass Index 25.02 06/23/2022 8:47 AM EDT Plan of Treatment Health Maintenance Due Date Last Done Comments Hepatitis A Vaccines (1 of 2 - Risk 2-dose series) 1978 RSV Immunization Adult Patients (1 - Risk 50-74 years 1-dose series) 2009 Zoster Vaccines (1 of 2) 2009 Hepatitis B Vaccines (1 of 3 - Risk 3-dose series) 2019 Abdominal Aortic Aneurysm (AAA) Screen 02/23/2022 Medicare Annual Wellness Visit 02/23/2022 Social Influencers of Health Screening 02/23/2022 Depression Screening 03/23/2024 Falls Risk Assessment 2024 COVID-19 Vaccine ( season) 2024 01/30/2023, 01/24/2022, 02/02/2021, Additional history exists Influenza Vaccine (#1) 2024 , 01/24/2022, 05/02/2019, Additional history exists Colorectal Cancer Screening: FIT-DNA (Cologuard) 01/04/2026 01/04/2023 DTaP,Tdap,and Td Vaccines (2 - Td or Tdap) 06/16/2026 06/16/2016 Cholesterol Screening (Lipid Panel) 01/01/2028 12/31/2022, 11/08/2021 Hepatitis C Screening Completed 11/08/2021 Pneumococcal Vaccine: 50+ Years Completed 04/20/2023 Lung Cancer Screening (Low Dose CT) Discontinued 08/08/2024, 08/08/2024, 07/14/2023, Additional history exists HIB Vaccines Aged Out No longer eligi ble based on patient's age to complete this topic HPV Vaccines Aged Out No longer eligi ble based on patient's age to complete this topic IPV Vaccines Aged Out No longer eligi ble based on patient's age to complete this topic MMR Vaccines Aged Out No longer eligi ble based on patient's age to complete this topic Meningococcal ACWY Vaccine Aged Out N o longer eligible based on patient's age to complete this topic Meningococcal B Vaccine Aged Out No l onger eligible based on patient's age to complete this topic RSV Immunization Patients Under 20 months Aged Out No longer eligible based on patient's age to complete this topic Varicella Vaccines Aged Out No longer eligible based on patient's age to complete this topic Procedures Procedure Name Priority Date/Time Associated Diagnosis Comments CT LUNG SCREENING Routine 08/08/2024 8:2 0 AM EDT Encounter for screening for malignant neoplasm of respiratory organs Nicotine dependence, cigarettes, uncomplicated from Last 3 Months or Most Recently Relevant to Health Maintenance Results * CT Lung Screening (08/08/2024 8:20 AM EDT) Anatomical Region Laterality Modality Chest Computed Tomogra phy 08/08/2024 1:01 PM EDT Impressions 08/09/2024 2:59 AM EDT No suspicious pulmonary nodules Lung RADS 2: Benign Appearance or Behavior - Continue annual screening with LDCT in 12 months. -------- FINAL REPORT -------- Dictated By: Natasha Rodriguez Dictated Date: 08/08/2024 13:01 ET Assigned Physician: Natasha Rodriguez Reviewed and Electronically Signed By: Natasha Rodriguez Signed Date: 08/09/2024 02:59 ET Workstation ID: [id number] Transcribed By: Self Edit Transcribed Date: 08/09/2024 02:39 ET Narrative 08/09/2024 2:59 AM EDT Indication: Greater than 20 total pack-year smoking history, asymptomatic current smoker Technique: Low-dose CT scan of the chest obtained as a lung cancer screening study. Multiplanar reformatted images were obtained. Dose reduction technique: ASIR (Adaptive statistical iterative reconstruction) and/or AEC (automated exposure control) DLP: 185.18 mGy-cm COMPARISON: June 2023. FINDINGS: Lack of intravenous contrast limits evaluation of the melissa, vascular structures and visualized abdominal viscera. Lungs/airways: Secretions are noted within the distal trachea with mild bronchial wall thickening. Emphysematous changes. Biapical pleural-parenchymal scarring. Calcified granulomata. Few occasional scattered sub-5 mm pulmonary nodules, similar to prior. Base of the neck, mediastinum, heart, chest wall, vessels: The assessment of hilar lymphadenopathy is difficult without the use of IV contrast. Prominent mediastinal lymph nodes; similar to prior. Mild coronary artery calcifications. Possible small hiatal hernia. Upper abdomen: This study was performed without contrast and with lower than standard dose. These factors reduce the sensitivity for detection of small lesions in the upper abdomen. No significant abnormality is seen Bones/soft tissues: Unremarkable Procedure Note Natasha Rodriguez MD - 08/09/2024 Indication: Greater than 20 total pack-year smoking history, asymptomaticcurrent smoker Technique: Low-dose CT scan of the chest obtained as a lung cancerscreening study. Multiplanar reformatted images were obtained. Dosereduction technique: ASIR (Adaptive statistical iterative reconstruction)and/or AEC (automated exposure control) DLP: 185.18 mGy-cm COMPARISON: June 2023. FINDINGS: Lack of intravenous contrast limits evaluation of the melissa,vascular structures and visualized abdominal viscera. Lungs/airways: Secretions are noted within the distal trachea with mildbronchial wall thickening. Emphysematous changes. Biapicalpleural-parenchymal scarring. Calcified granulomata. Few occasional scattered sub-5 mm pulmonary nodules, similar to prior. Base of the neck, mediastinum, heart, chest wall, vessels: The assessmentof hilar lymphadenopathy is difficult without the use of IV contrast.Prominent mediastinal lymph nodes; similar to prior. Mild coronary arterycalcifications. Possible small hiatal hernia. Upper abdomen: This study was performed without contrast and with lowerthan standard dose. These factors reduce the sensitivity for detection ofsmall lesions in the upper abdomen. No significant abnormality is seen Bones/soft tissues: Unremarkable IMPRESSION: No suspicious pulmonary nodules Lung RADS 2: Benign Appearance or Behavior - Continue annual screeningwith LDCT in 12 months. -------- FINAL REPORT -------- Dictated By: Natasha Rodriguez Dictated Date: 08/08/2024 13:01 ET Assigned Physician: Natasha Rodriguez Reviewed and Electronically Signed By: Natasha Rodriguez Signed Date: 08/09/2024 02:59 ET Workstation ID: [id number] Transcribed By: Self Edit Transcribed Date: 08/09/2024 02:39 ET Luis Manuel Blair MD IM CT PROCEDURES Final Result from Last 3 Months or Most Recently Relevant to Health Maintenance Insurance MEDICARE [facility] [place] [address] Care Teams Medical Office Professional Instructor Relationship Specialty Start Date End Date Ana María Chambers RN [address] [place] [id number] PCP - General 05/27/22
--- OUTSIDE RECORDS SUMMARY | 2025-03-21 10:44 | XMS_ITS | Clinical Summary ---
Author Organization [facility] Address [address] [place] [id number] Phone Care Team Providers Care Product Director Name Role Phone Darwin Gallagher MD Unavailable Allergies Active Allergy Reactions Criticality Noted Date Comments Other Anaphylaxis High 10/06/2017 Stingray Penicillins Swelling,Nausea and/or Vomiting High Penicillins 09/04/2018 Medications therapeutic multivitamin tablet Take 1 tablet by mouth daily. Active albuterol 90 mcg/actuation inhalerIndications :Chronic cough Inhale 2 puffs into the lungs every 4 (four) hours as needed for shortness of breath/dyspnea. 6.7 g 2 11/01/19 22 Active Additional Information Patient not taking.Reported on 12/06/2021 atorvastatin (LIPITOR) 20 MG tabletIndications: Mixed hyperlipidemia Take 1 tablet (20 mg total) by mouth every evening. 90 tablet 2 12/07/19 Active fluticasone propion-salmeteroL (ADVAIR HFA) 115-21 mcg/actuation inhalerIndications :Abnormal PFT,Chronic cough Inhale 2 puffs into the lungs 2 (two) times a day. 12 g 3 12/07/19 22 Active Active Problems Problem Noted Date Diagnosed Date Mixed hyperlipidemia 12/06/2021 Chronic alcohol use 11/24/2021 Chronic cough 11/24/2021 Alcohol induced fatty liver 11/08/2021 Overview (11/08/2021): abd US (10/2021) Gallbladder polyp 11/08/2021 Overview (11/08/2021): repeat abdominal US in 1 year (10/2022) for surveillance of multiple small gallbladder polyps Left carpal tunnel syndrome 10/31/2021 Chronic hand pain, left 10/31/2021 Smoker 10/31/2021 Prediabetes 10/31/2021 Overview (11/08/2021): Lab Results Component Value Date GHBA1C 5.9 (H) 11/08/2021 Resolved Problems Problem Noted Date Diagnosed Date Resolved Date Liver mass 10/31/2021 11/08/2021 Overview (11/08/2021): Resolved on liver US 10/2021 Immunizations No known immunizations Family History Relation Status Comments Mother Alive Social History Tobacco Use Types Packs/Day Years Used Date Smoking Tobacco: Every Day Cigarettes Smokeless Tobacco: Never Alcohol Use Standard Drinks/Week Comments Yes 0 (1 standard drink = 0.6 oz pur e alcohol) Child or Family Care Answer Date Record ed Do you have problems with on e of the following making it difficult for you to work, study, or receive health care? No 10/31/2021 Education Answer Date Recorded Are you interested in more education? Not on arnaldo e 11/04/2023 Are you concerned about learning? Not on file 11/04/2023 No 11/04/2023 No 11/04/2023 Food Answer Date Recorded Within the past 6 months we worried whether our food would run out before we got money to buy more. Never True 10/31/2021 Within the past 6 months the food we bought just didn't last and we didn't have enough money to get more. Never True Residential Stability Answer Date Recor ded What is your housing situation today? I have rishabh sing 10/31/2021 How many times have you move d in the past 12 months? Zero (I did not move) 10/31/2021 06 Are you worried that in t he next 2 months, you may not have your own housing to live in? No 10/31/2021 Paying for Meds Answer Date Recorded Do you have trouble paying for medicines? No 10/31/2021 Paying Utility Bills Answer Date Record ed Do you have trouble paying your heating or elect ricity bill? No 10/31/2021 Transportation Answer Date Recorded Has the lack of transportati on kept you from medical appointments or from getting medications? No 10/31/2021 Unemployment Answer Date Recorded Are you currently unemployed or working on a part-time or temporary basis, and looking for work? No 10/31/2021 Digital Access Answer Date Recorded No 08/16/2022 No 08/16/2022 No 08/16/2022 Reliable internet access at home? Not on file 08/16/2022 Device with a working camera? Not on file Sex and Gender Information Value Date Recorded Sex Assigned at Male 09/04/2018 12:34 PM EDT Legal Sex Male 12:20 PM EDT Gender Identity Male 09/04/2018 12:34 PM EDT Sexual Orientation Straight 09/04/2018 12 :34 PM EDT Last Filed Vital Signs Vital Sign Reading Time Taken Comments Blood Pressure 104/58 12/06/2021 10:00 AM EDT Pulse 59 12/06/2021 10:00 AM EDT Temperature 36.2 C (97.2 F) 12/06/2021 10:00 AM EDT Respiratory Rate 16 09/04/2018 8:03 PM EDT Oxygen Saturation 99% 12/06/2021 10: 00 AM EDT Inhaled Oxygen Concentration - - Weight 74.8 kg (164 lb 12.8 oz) 022 10:00 AM EDT Height 180.4 cm (5' 11.02 ) 12/06/2021 10:00 AM EDT Body Mass Index 22.97 12/06/2021 10:00 AM EDT Plan of Treatment Health Maintenance Due Date Last Done Comments Adult Td,Tdap Booster 1959 SMOKING Hx and SMOKELESS TOBACCO SCREENING 1972 HIV ONE-TIME SCREENING (18-6 5 YEARS) 1977 HEPATITIS A VACCINES (1 of 2 - Risk 2-dose series) 1978 PNEUMOCOCCAL VACCINES (50+ years) (1 of 2 - PCV) 1978 COLOGUARD 2004 COLONOSCOPY 2004 COLORECTAL CANCER SCREENING 2004 FIT TEST 2004 FOBT 2004 SIGMOIDOSCOPY 2004 VIRTUAL COLONOSCOPY 2004 RSV VACCINE (1 - Risk 50-74 years 1-dose series) 2009 ZOSTER VACCINES (1 of 2) 2009 DEPRESSION SCREENING 12/06/2022 12/06/2021, 12/06/2021 ABDOMINAL AORTIC ANEURYSM (AAA) SCREENING 2024 09/21/2017 INFLUENZA VACCINE (#1) 2024 COVID-19 VACCINE (1 - 2024-2 6 season) 2024 LIPID PANEL 11/08/2026 11/08/2021 HEPATITIS C SCREENING Completed 11/08/2021 HIB VACCINES Aged Out No longer eligi ble based on patient's age to complete this topic MENINGOCOCCAL VACCINES (ACWY) Aged Out No longer eligible based on patient's age to complete this topic MENINGOCOCCAL VACCINES (B) Aged Out N o longer eligible based on patient's age to complete this topic Medical Devices Not on file Procedures Procedure Name Priority Date/Time Associated Diagnosis Comments LIPID PANEL Routine 11/08/2021 9:55 AM EDT Liver mass HEPATITIS C ANTIBODY, QUALITATIVE Routine 11/08/2021 9:55 AM EDT Liver mass Need for hepatitis C screening test CT ABDOMEN WITH AND WITHOUT CONTRAST Routine 09/21/2017 3:28 PM EDT Hepatomegaly from Last 3 Months or Most Recently Relevant to Health Maintenance Results * Hepatitis C antibody, qualitative (11/08/2021 9:55 AM EDT) HCV NON-REACTIV E NON-REACTI VE [facility] Blood 11/08/2021 9:55 AM EDT 11/08/2021 9:56 AM EDT us Duyen Ramirez MD LAB BLOOD BKR ORDERA BLES Final Result [facility] [address] [place] [address] * (ABNORMAL) Lipid panel (11/08/2021 9:55 AM EDT) HDL 41 mg/dL [facility] Comment: Interpretation <40 mg/dL: Low HDL cholesterol (major risk factor for CHD) Greater than or equal to 60 mg/dL: High HDL cholesterol ( negative risk factor for CHD) HDL - cholesterol is affected by a number of factors, e.g. smoking, excerise, hormones, sex and age. CHOLESTEROL 225 0 - 240 mg/dL [facility] TRIGLYCERIDES 258(H) 30 - 160 mg/dL [facility] LDL 132(H) 50 - 129 mg/dL [facility] Comment: LDL levels in terms of risk for coronary heart disease: <100 mg/dL: Optimal 100-129 mg/dL: Near or above optimal 130-159 mg/dL: Borderline high 160-189 mg/dL: High >190 mg/dL: Very High CARDIAC RISK RATIO 5.5(H) 3.4 - 5.0 C [facility] Blood 11/08/2021 9:55 AM EDT 11/08/2021 9:57 AM EDT us Duyen Ramirez MD LAB BLOOD BKR ORDERA BLES Final Result [facility] [address] [place] [address] * CT ABDOMEN WITH AND WITHOUT CONTRAST [...] mGy POS - [id number] Darwin Gallagher MD IM CT XSPECIALTY ORDERABLES Fin al Result from Last 3 Months or Most Recently Relevant to Health Maintenance Insurance HMO HMO HMO HMO [place] [address] [place] [place] [address] HMO Care Teams Product Director Relationship Specialty Start Date End Date Darwin Gallagher MD [address] [place] [address] [address] [place] [id number] [email or web address] 09/04/18 Additional Source Comments The information contained in this document represents components of the legal health record. It is not the complete legal health record.[facility]
--- OUTSIDE RECORDS SUMMARY | 2025-03-21 10:44 | XMS_ITS | Encounter Summary ---
Author Organization [employer] Address [address] [facility] [address] [place] [address] Care Team Providers Care Roller Repairer Name Role Phone Ana María Chambers RN [employer] Primary Care Provider [phone] Encounter Details Date Type Department Care Team (Late st Contact Info) Description 07/14/2023 Orders Only [facility] [address] [place] [address] Provider, MD Donte Social History Tobacco Use Types Packs/Day Years Used Date Smoking Tobacco: Every Day Cigarettes Passive Smoke Exposure: Current Smokeless Tobacco: Former Depression Answer Date Recorded Patient Health Questionnaire-9 Score 9 12/26/2022 Housing Stability Answer Date Recorded What is your housing situation today? I have rishabh mccann 01/06/[address] you li ve. Do you have problems with any of the following? I am not sure 01/06/2023 Food Insecurity Answer Date Recorded Within the [...] Date Recorded Patient Health Questionnaire-2 Score 2 12/26/2022 Sex and Gender Information Value Date Recorded Sex Assigned at Male 05/05/2022 4:26 PM EST Legal Sex Male 4:25 PM EST Gender Identity Male 05/05/2022 4:26 PM EST Sexual Orientation Straight 12/26/2022 2: 53 PM EDT documented as of this encounter Plan of Treatment Upcoming Encounters Date Type Department Care Team (Late st Contact Info) Description 04/03/2025 9:00 AM EST Office Visit [facility] MED & PEDS [address] [place] [address] Ana María Chambers FNP [address] [place] [address] documented as of this encounter Procedures Procedure Name Priority Date/Time Associated Diagnosis Comments CT LUNG SCREENING Routine 07/13/2023 1:50 PM EDT HM LUNG CANCER SCREENING Routine 07/13/2023 8:00 AM EDT documented in this encounter Results * CT Lung Screening Low dose (07/13/2023 1:50 PM EDT) Anatomical Region Laterality Modality Lung Computed Tomogra phy us Historical Provider IMG CT PROCEDURES Final R esult * Hm Lung Cancer Screning (07/13/2023 8:00 AM EDT) Anatomical Region Laterality Modality Other us Historical Provider HEALTH MAINTENANCE Final Result documented in this encounter Visit Diagnoses Not on filedocumented in this encounter Additional Health Concerns Assessment Noted Time PHQ-9 Depression Total Score: 9 12/27/19 23 3:14 PM EDT documented as of this encounter Care Teams Roller Repairer Relationship Specialty Start Date End Date Ana María Chambers FNP [address] [place] [address] PCP - General Family Medicine 05/27/22 documented as of this encounter
[2025-03-21 15:09] LABS: MANUAL DIFF FLAG NO
[2025-03-21 15:15] LABS: Hematocrit 40.6 % (42.0-52.0); Hemoglobin 13.1 g/dl (14.0-18.0); Imm Gran Abs Auto 0.03 X10*3/uL (0.00-0.03); Imm Gran Pct Auto 0.4 % (0.0-0.4); Lymphocytes Absolute Auto 1.8 X10*3/uL (1.2-4.9); Mean Corpuscular HGB Conc 32.3 g/dl (31.0-36.0); Mean Corpuscular Hemoglobin 28.7 pg (27.0-33.0); Mean Corpuscular Volume 89.0 fL (80.0-98.0); NRBC Abs Auto 0.000 X10*3/uL (0.0-0.012); NRBC Pct Auto 0.0 /100WBC (0.0-0.2); Platelet Count 369 X10*3/uL (160-400); Red Blood Count 4.56 X10*6/uL (4.60-5.80); White Blood Count 8.2 X10*3/uL (4.8-10.8)
[2025-03-21 16:07] LABS: Alanine Aminotransferase 17 U/L (0-40); Albumin Level 4.3 g/dL (3.5-5.0); Alkaline Phosphatase 75 U/L (39-117); Anion Gap 13 (12-20); Aspartate Amino Transferase 32 U/L (5-37); Blood Urea Nitrogen 13 mg/dL (9-16); Calcium 9.7 mg/dL (8.4-10.2); Carbon Dioxide 25 mmol/L (22-29); Chloride 108 mmol/L (96-108); Cholesterol 181 mg/dL (<200); Estimated Glomerular Filt Rate > 60; HDL Cholesterol 41 mg/dL (>40); Potassium 3.6 mmol/L (3.3-5.1); Sodium 142 mmol/L (135-145); Total Protein 7.2 g/dL (6.5-8.0); Triglycerides 229 mg/dL (<150)
[2025-03-21 23:23] LABS: CT PCR Urine NOT DETECTED (Not Detect.); NG PCR Urine NOT DETECTED (Not Detect.)
[2025-03-22 03:41] LABS: HIV Num 1 0.33 S/CO (0.00-0.99)
[2025-03-22 15:58] LABS: HCV Log PCR <1.18 NOT DETECTED Log IU/mL (NOT DETECTED); HepC Viral Load <15 NOT DETECTED IU/mL (NOT DETECTED)
== END 2025-03-21 08:49 | disposition home or self-care (01) ==
LOC: HO.CHCLDS 08:48
PROVIDERS: Visit Provider Registered Nurse
DX: Z00.00 Encounter for general adult medical examination without abnormal findings (principal); Z20.2 Contact with and (suspected) exposure to infections with a predominantly sexual mode of transmission; Z13.6 Encounter for screening for cardiovascular disorders; Z13.1 Encounter for screening for diabetes mellitus; Z13.29 Encounter for screening for other suspected endocrine disorder
CPT/HCPCS: 80053; 80061; 83036; 84443; 85025; 86592; 87389; 87491; 87522; 87591